=== PATIENT | female | born 1995 | race Caucasian/White ===

== ENCOUNTER 2022-09-14 10:32 | Emergency (ER) | payer BC, OTHER ==
[~2022-09-14] VITALS: Ht 154.9 cm; Wt 54.4 kg
[~2022-09-14 10:32] MED LIST: ACET-73 PO
[2022-09-14] MEDS ORDERED: ONDANSETRON 4 MG/2 ML VIAL IV ONE (11:15)
[2022-09-14] MEDS ORDERED: IV NORMAL SALINE 1000 ML BAG IV ONE (11:15)
[2022-09-14] MEDS ORDERED: ONDANSETRON 4 MG/2 ML VIAL ONE (11:20)
[2022-09-14 11:35] LABS: HEMATOCRIT 40.4 % (31.2-41.9); MEAN CORPUSCULAR HEMOGLOBIN 30.6 uug (24.7-32.8); MEAN CORPUSCULAR VOLUME 89.9 fL (75.5-95.3); PLATELET COUNT (AUTO) 199 K/uL (179-408)
[2022-09-14 11:50] LABS: THYROID STIMULATING HORMONE 1.738 mIU/mL (0.358-3.740)
[2022-09-14 11:54] LABS: ALANINE AMINOTRANSFERASE 18 U/L (14-59); ALKALINE PHOSPHATASE 67 U/L (50-136); ASPARTATE AMINOTRANSFERASE 9 U/L (15-37); BILIRUBIN,DIRECT 0.2 mg/dL (0.0-0.2); BILIRUBIN,TOTAL 0.7 mg/dL (0.2-1.0); CARBON DIOXIDE 25 mmol/L (21-32); CHLORIDE 104 mmol/L (98-107); CREATININE 0.9 mg/dL (0.6-1.3); GLUCOSE 120 mg/dL (74-106); POTASSIUM 3.5 mmol/L (3.5-5.1); TOTAL PROTEIN, SERUM 7.4 g/dL (6.4-8.2); UREA NITROGEN, BLOOD 10 mg/dL (7-18)
[2022-09-14 12:36] LABS: *BILIRUBIN,URIN NEGATIVE (NEGATIVE); *BLOOD, URINE NEGATIVE (NEGATIVE); *CLARITY,URINE CLEAR (CLEAR); *COLOR,URINE YELLOW (YELLOW); *KETONES,URINE NEGATIVE (NEGATIVE); *UROBILINOGEN,URINE 0.2 E.U./dl (NORMAL); LEUKOCYTE ESTERASE ,URINE NEGATIVE (NEGATIVE); NITRITE, URINE NEGATIVE (NEGATIVE); UGLUCOSE NEGATIVE (NEGATIVE)
[2022-09-14 12:42] LABS: *URINE HCG, QUAL NEG (NEGATIVE)
--- NOTE | 2022-09-14 13:35 | NUR ---
IV removed. Catheter intact and site benign. Pressure and 4x4 gauze applied to site. No bleeding noted.
[2022-09-14 13:39] VITALS: BP 117/71
--- NOTE | 2022-09-14 13:39 | NUR ---
Patient discharged to home in stable condition. Written and verbal after care instructions given. Patient verbalizes understanding of instructions. Stressed follow up or return to ER for worsening s/s.
== END 2022-09-14 13:40 | disposition home or self-care (01) ==
LOC: ER 10:32
DX: R55 Syncope and collapse (principal); D72.829 Elevated white blood cell count, unspecified; J02.9 Acute pharyngitis, unspecified; Z20.822 Contact with and (suspected) exposure to COVID-19; R00.0 Tachycardia, unspecified; E03.9 Hypothyroidism, unspecified
CPT/HCPCS: 99285; 96374; 71045; 96361; 87426; 87804; 80076; 80048; 81003; 84703; 83690; 84443; 85025; 86403; 87040 ×2; 84484; 36415; 93005; 83605; J2405; J7040; A4663

== ENCOUNTER 2022-09-15 11:21 | Emergency (ER) | payer BC ==
[~2022-09-15] VITALS: Ht 154.9 cm; Wt 56.7 kg
[2022-09-15] MEDS ORDERED: NAPROXEN 500 MG TABLET ONE (12:21)
[2022-09-15] MEDS ORDERED: NAPROXEN 500 MG TABLET PO ONE (12:30)
[2022-09-15 12:36] LABS: HEMATOCRIT 40.2 % (31.2-41.9); MEAN CORPUSCULAR VOLUME 90.9 fL (75.5-95.3); PLATELET COUNT (AUTO) 192 K/uL (179-408)
[2022-09-15 12:52] LABS: CREATININE 0.7 mg/dL (0.6-1.3); POTASSIUM 3.5 mmol/L (3.5-5.1)
[2022-09-15 13:07] LABS: THYROID STIMULATING HORMONE 2.788 mIU/mL (0.358-3.740)
[2022-09-15 13:53] VITALS: BP 100/53
== END 2022-09-15 14:11 | disposition home or self-care (01) ==
LOC: ER 11:21
DX: D72.829 Elevated white blood cell count, unspecified (principal); J02.9 Acute pharyngitis, unspecified; R55 Syncope and collapse; E03.9 Hypothyroidism, unspecified; Z79.890 Hormone replacement therapy
CPT/HCPCS: 36415; 84443; 85025; A4663